=== PATIENT | female | born 1970 | race Caucasian/White ===

== ENCOUNTER 2018-05-17 15:25 | Inpatient (IN) ==
[2018-05-17 16:11] LABS: Basophils # 0.1 10*3/uL (0.0-0.2); Basophils % 0.7 % (0.0-0.8); Eosinophils # 0.2 10*3/uL (0.0-0.87); Eosinophils % 1.4 % (0.00-10.9); Hematocrit 49.2 VOL% (35.7-47.0); Hemoglobin 16.5 GM/DL (12.0-16.0); Immature Granulocytes Absolute 0.17 #; Lymphocytes % 12.1 % (21.3-54.2); Mean Corpuscular HGB Conc 33.5 GM/DL (32-36); Mean Corpuscular Hemoglobin 28 PG (27-34); Mean Corpuscular Volume 82.8 FL (87-102); Mean Platelet Volume 9.7 FL (9.6-12.0); Monocytes % 5.9 % (1.7-12.7); Neutrophils # 12.8 10*3/uL (1.4-7.4); Neutrophils % 78.9 % (38.7-73.9); Platelet Count 391 T/CUMM (130-400); Red Blood Count 5.94 MC/CUMM (3.8-5.5); Red Cell Distribution Width 12.9 % (9.3-17.3); White Blood Count 16.2 T/CUMM (4-12)
[2018-05-17] MEDS ORDERED: SODIUM CHLORIDE 0.9% 1,000 ML IV STA (16:15)
[2018-05-17] MEDS ORDERED: ONDANSETRON 4 MG/2 ML VIAL IV STA (16:15)
[2018-05-17 16:26] LABS: INR 0.9; PT Patient Result 10.1 SECS; Partial Thromboplastin Time 23.9 SECS (0-40)
[2018-05-17 16:27] LABS: Albumin 3.9 G/DL (3.4-5.0); Bilirubin,Total 0.5 MG/DL (0.2-1.0); Calcium 9.5 MG/DL (8.5-10.1); Osmolality,Calculated 285.5 MOS/KG (273-304); Potassium 3.7 MMOL/L (3.5-5.1); Total Protein 7.9 G/DL (6.4-8.3)
[2018-05-17] MEDS ORDERED: INSULIN REGULAR 100 UNIT/ML SUBCUT STA (16:38)
[2018-05-17 16:53] LABS: Lactic Acid 2.6 MMOL/L (0.4-2.0)
[2018-05-17] MEDS ORDERED: DEXTROSE 50% 25 GM/50 ML VIAL IV PRN ×2 (17:05→18:56)
[2018-05-17] MEDS ORDERED: GLUCAGON 1 MG VIAL IM PRN ×2 (17:05→18:56)
[2018-05-17 17:48] LABS: Risk Ratio 8.07; VLDL CHOLESTEROL 99.4 MG/DL
[2018-05-17 17:54] LABS: Troponin I < 0.015 NG/ML (0.00-0.045)
[2018-05-17 18:03] LABS: Apearance,Urine CLEAR (Clear); Bilirubin,Urine Negative (Negative); Blood, Urine Negative (Negative); Glucose,Urine (UA) >=500 mg/dL (Negative); Ketones,Urine 5 mg/dL (Negative); Nitrite,Urine Negative (Negative); Protein,Urine Negative; RBC,Urine 1 /HPF (0-4); Squamous Epithelial Cell,Urine Occasional /HPF (0-10); Urine Color Yellow (Yellow); Urine Specific Gravity 1.024 (1.001-1.035); Urine Urobilinogen < 2.0 EU/DL (0.2-1.0); WBC,Urine 2 /HPF (0-6)
[2018-05-17 18:10] LABS: Barbiturates Screen,Urine Negative (Negative); Benzodiazepines Screen,Urine Positive (Negative); Cannabinoid Screen,Urine Positive (Negative); Opiate Screen,Urine Negative (Negative); Phencyclidine Screen,Urine Negative (Negative)
[2018-05-17] MEDS ORDERED: INFLUENZA VIRUS VACCINE 0.5 ML SYRINGE IM ONE (19:06)
[2018-05-17] MEDS: ENOXAPARIN 40 MG/0.4 ML SYRINGE SUBCUT SCH (21:44)
[2018-05-17] MEDS: INSULIN REGULAR 100 UNIT/ML SUBCUT SCH (21:44)
[2018-05-18] MEDS: ACETAMINOPHEN 325 MG TABLET PO PRN ×2 (04:03→08:13)
[2018-05-18 06:55] LABS: Basophils # 0.1 10*3/uL (0.0-0.2); Basophils % 1.1 % (0.0-0.8); Eosinophils # 0.3 10*3/uL (0.0-0.87); Eosinophils % 2.4 % (0.00-10.9); Hematocrit 49.2 VOL% (35.7-47.0); Hemoglobin 16.7 GM/DL (12.0-16.0); Immature Granulocytes % 0.8 %; Lymphocytes # 2.4 10*3/uL (1.4-4.0); Lymphocytes % 19.8 % (21.3-54.2); Mean Corpuscular HGB Conc 33.9 GM/DL (32-36); Mean Corpuscular Hemoglobin 28 PG (27-34); Mean Corpuscular Volume 83.2 FL (87-102); Mean Platelet Volume 9.9 FL (9.6-12.0); Monocytes # 1.1 10*3/uL (0.11-0.8); Monocytes % 8.8 % (1.7-12.7); Neutrophils % 67.1 % (38.7-73.9); Platelet Count 291 T/CUMM (130-400); Red Blood Count 5.91 MC/CUMM (3.8-5.5); Red Cell Distribution Width 12.7 % (9.3-17.3); White Blood Count 11.9 T/CUMM (4-12)
[2018-05-18 07:20] LABS: Potassium 3.8 MMOL/L (3.5-5.1)
[2018-05-18] MEDS: INSULIN REGULAR 100 UNIT/ML SUBCUT SCH ×4 (08:10→20:57)
[2018-05-18] MEDS: ASPIRIN 325 MG TABLET PO SCH (08:11)
[2018-05-18] MEDS: FENOFIBRATE 145 MG TABLET PO SCH (15:11)
[2018-05-18] MEDS ORDERED: CALCIUM CARBONATE CHEW 500 MG TABLET PO PRN (16:52)
[2018-05-18] MEDS: GLIMEPIRIDE 4 MG TABLET PO SCH (18:32)
[2018-05-18] MEDS: ENOXAPARIN 40 MG/0.4 ML SYRINGE SUBCUT SCH (20:58)
[2018-05-18] MEDS: FAMOTIDINE 20 MG TABLET PO SCH (20:58)
[2018-05-18] MEDS: ROSUVASTATIN 20 MG TABLET PO SCH (20:58)
[2018-05-18] MEDS: IBUPROFEN 800 MG TABLET PO PRN (20:58)
[2018-05-19 05:08] LABS: Osmolality,Calculated 280.7 MOS/KG (273-304); Potassium 3.2 MMOL/L (3.5-5.1)
[2018-05-19 05:14] LABS: Basophils # 0.1 10*3/uL (0.0-0.2); Basophils % 1.2 % (0.0-0.8); Eosinophils # 0.3 10*3/uL (0.0-0.87); Eosinophils % 2.8 % (0.00-10.9); Hematocrit 47.8 VOL% (35.7-47.0); Immature Granulocytes % 0.7 %; Immature Granulocytes Absolute 0.07 #; Lymphocytes # 2.7 10*3/uL (1.4-4.0); Lymphocytes % 25.7 % (21.3-54.2); Mean Corpuscular HGB Conc 33.5 GM/DL (32-36); Mean Corpuscular Hemoglobin 28 PG (27-34); Mean Corpuscular Volume 82.7 FL (87-102); Mean Platelet Volume 9.6 FL (9.6-12.0); Monocytes # 0.9 10*3/uL (0.11-0.8); Monocytes % 8.9 % (1.7-12.7); Neutrophils # 6.3 10*3/uL (1.4-7.4); Neutrophils % 60.7 % (38.7-73.9); Platelet Count 346 T/CUMM (130-400); Red Blood Count 5.78 MC/CUMM (3.8-5.5); Red Cell Distribution Width 12.7 % (9.3-17.3); White Blood Count 10.3 T/CUMM (4-12)
[2018-05-19] MEDS: IBUPROFEN 800 MG TABLET PO PRN (05:37)
[2018-05-19] MEDS: FAMOTIDINE 20 MG TABLET PO SCH ×2 (08:07→21:44)
[2018-05-19] MEDS: FENOFIBRATE 145 MG TABLET PO SCH (08:07)
[2018-05-19] MEDS: INSULIN REGULAR 100 UNIT/ML SUBCUT SCH ×4 (08:07→21:45)
[2018-05-19] MEDS: ASPIRIN 325 MG TABLET PO SCH (08:07)
[2018-05-19] MEDS: LEVOTHYROXINE 75 MCG TABLET PO SCH (08:07)
[2018-05-19] MEDS: GLIMEPIRIDE 4 MG TABLET PO SCH ×2 (08:07→16:22)
[2018-05-19] MEDS ORDERED: POTASSIUM CHLORIDE 20 MEQ TABLET PO PRN (09:05)
[2018-05-19] MEDS: NICOTINE 21 MG/24 HR PATCH TRANSDERM SCH (09:06)
[2018-05-19] MEDS ORDERED: POTASSIUM CHLORIDE 20 MEQ TABLET PO ONE (13:52)
[2018-05-19] MEDS ORDERED: LISINOPRIL/HCTZ 10-12.5 MG TABLET PO SCH (14:00)
[2018-05-19] MEDS: POTASSIUM CHLORIDE 10 MEQ TABLET PO SCH (14:09)
[2018-05-19] MEDS: ROSUVASTATIN 20 MG TABLET PO SCH (21:44)
[2018-05-19] MEDS: ENOXAPARIN 40 MG/0.4 ML SYRINGE SUBCUT SCH (21:44)
[2018-05-19] MEDS: amLODIPine 5 MG TABLET PO SCH (21:45)
[2018-05-19] MEDS: INSULIN GLARGINE 100 UNIT/ML SUBCUT SCH (21:45)
[2018-05-20] MEDS: IBUPROFEN 800 MG TABLET PO PRN (04:21)
[2018-05-20 05:24] LABS: Basophils # 0.1 10*3/uL (0.0-0.2); Basophils % 1.3 % (0.0-0.8); Eosinophils # 0.3 10*3/uL (0.0-0.87); Hematocrit 46.8 VOL% (35.7-47.0); Hemoglobin 15.7 GM/DL (12.0-16.0); Immature Granulocytes % 1.1 %; Lymphocytes # 2.4 10*3/uL (1.4-4.0); Mean Corpuscular HGB Conc 33.5 GM/DL (32-36); Mean Corpuscular Hemoglobin 28 PG (27-34); Mean Corpuscular Volume 82.5 FL (87-102); Mean Platelet Volume 9.7 FL (9.6-12.0); Monocytes # 0.9 10*3/uL (0.11-0.8); Monocytes % 9.9 % (1.7-12.7); Neutrophils # 5.5 10*3/uL (1.4-7.4); Neutrophils % 58.7 % (38.7-73.9); Platelet Count 321 T/CUMM (130-400); Red Blood Count 5.67 MC/CUMM (3.8-5.5); Red Cell Distribution Width 12.8 % (9.3-17.3); White Blood Count 9.3 T/CUMM (4-12)
[2018-05-20 05:59] LABS: Osmolality,Calculated 285.7 MOS/KG (273-304); Potassium 3.5 MMOL/L (3.5-5.1)
[2018-05-20 06:00] LABS: Calcium 8.8 MG/DL (8.5-10.1); Osmolality,Calculated 285.7 MOS/KG (273-304); Potassium 3.5 MMOL/L (3.5-5.1)
[2018-05-20] MEDS: LEVOTHYROXINE 75 MCG TABLET PO SCH (06:43)
[2018-05-20] MEDS: NICOTINE 21 MG/24 HR PATCH TRANSDERM SCH (08:09)
[2018-05-20] MEDS: INSULIN REGULAR 100 UNIT/ML SUBCUT SCH ×4 (08:09→21:27)
[2018-05-20] MEDS: FAMOTIDINE 20 MG TABLET PO SCH ×2 (08:11→21:27)
[2018-05-20] MEDS: FENOFIBRATE 145 MG TABLET PO SCH (08:11)
[2018-05-20] MEDS: GLIMEPIRIDE 4 MG TABLET PO SCH ×2 (08:11→16:39)
[2018-05-20] MEDS: POTASSIUM CHLORIDE 10 MEQ TABLET PO SCH (08:11)
[2018-05-20] MEDS: amLODIPine 5 MG TABLET PO SCH ×2 (08:11→21:27)
[2018-05-20] MEDS: ASPIRIN 325 MG TABLET PO SCH (08:11)
[2018-05-20] MEDS: ROSUVASTATIN 20 MG TABLET PO SCH (21:27)
[2018-05-20] MEDS: INSULIN GLARGINE 100 UNIT/ML SUBCUT SCH (21:27)
[2018-05-20] MEDS: ENOXAPARIN 40 MG/0.4 ML SYRINGE SUBCUT SCH (21:27)
[2018-05-21] MEDS: IBUPROFEN 800 MG TABLET PO PRN ×2 (05:19→22:49)
[2018-05-21] MEDS: LEVOTHYROXINE 75 MCG TABLET PO SCH (06:32)
[2018-05-21] MEDS: NICOTINE 21 MG/24 HR PATCH TRANSDERM SCH (08:10)
[2018-05-21] MEDS: INSULIN REGULAR 100 UNIT/ML SUBCUT SCH ×4 (08:10→23:05)
[2018-05-21] MEDS: FAMOTIDINE 20 MG TABLET PO SCH ×2 (08:10→22:48)
[2018-05-21] MEDS: GLIMEPIRIDE 4 MG TABLET PO SCH ×2 (08:10→16:16)
[2018-05-21] MEDS: amLODIPine 5 MG TABLET PO SCH ×2 (08:10→22:48)
[2018-05-21] MEDS: ASPIRIN 325 MG TABLET PO SCH (08:10)
[2018-05-21] MEDS: POTASSIUM CHLORIDE 10 MEQ TABLET PO SCH (08:10)
[2018-05-21] MEDS: FENOFIBRATE 145 MG TABLET PO SCH (08:10)
[2018-05-21] MEDS ORDERED: cefTRIAXone 1,000 MG in SYRINGE 1 EACH IV SCH (11:30)
[2018-05-21] MEDS: ENOXAPARIN 40 MG/0.4 ML SYRINGE SUBCUT SCH (22:48)
[2018-05-21] MEDS: ROSUVASTATIN 20 MG TABLET PO SCH (22:48)
[2018-05-21] MEDS: AMOXICILLIN/CLAV 875 MG TABLET PO SCH (22:49)
[2018-05-21] MEDS: INSULIN GLARGINE 100 UNIT/ML SUBCUT SCH (22:50)
[2018-05-22] MEDS: LEVOTHYROXINE 75 MCG TABLET PO SCH (06:32)
[2018-05-22] MEDS: FENOFIBRATE 145 MG TABLET PO SCH (09:16)
[2018-05-22] MEDS: ASPIRIN 325 MG TABLET PO SCH (09:16)
[2018-05-22] MEDS: POTASSIUM CHLORIDE 10 MEQ TABLET PO SCH (09:16)
[2018-05-22] MEDS: amLODIPine 5 MG TABLET PO SCH ×2 (09:16→21:48)
[2018-05-22] MEDS: AMOXICILLIN/CLAV 875 MG TABLET PO SCH ×2 (09:17→21:48)
[2018-05-22] MEDS: NICOTINE 21 MG/24 HR PATCH TRANSDERM SCH (09:17)
[2018-05-22] MEDS: GLIMEPIRIDE 4 MG TABLET PO SCH ×2 (09:17→17:22)
[2018-05-22] MEDS: INSULIN REGULAR 100 UNIT/ML SUBCUT SCH ×4 (09:17→21:47)
[2018-05-22] MEDS: FAMOTIDINE 20 MG TABLET PO SCH ×2 (09:18→21:48)
[2018-05-22] MEDS: IBUPROFEN 800 MG TABLET PO PRN ×2 (12:02→21:46)
[2018-05-22] MEDS: ACETAMINOPHEN 325 MG TABLET PO PRN (17:24)
[2018-05-22] MEDS ORDERED: INSULIN GLARGINE 100 UNIT/ML SUBCUT SCH (21:00)
[2018-05-22] MEDS ORDERED: ONDANSETRON 4 MG/2 ML VIAL IV PRN (21:28)
[2018-05-22] MEDS: ENOXAPARIN 40 MG/0.4 ML SYRINGE SUBCUT SCH (21:48)
[2018-05-22] MEDS: ROSUVASTATIN 20 MG TABLET PO SCH (21:48)
[2018-05-22] MEDS ORDERED: PROMETHAZINE 25 MG TABLET PO ONE (22:18)
[2018-05-23] MEDS: ACETAMINOPHEN 325 MG TABLET PO PRN (04:06)
[2018-05-23] MEDS: LEVOTHYROXINE 75 MCG TABLET PO SCH (06:12)
[2018-05-23] MEDS: GLIMEPIRIDE 4 MG TABLET PO SCH (08:28)
[2018-05-23] MEDS: POTASSIUM CHLORIDE 10 MEQ TABLET PO SCH (08:28)
[2018-05-23] MEDS: AMOXICILLIN/CLAV 875 MG TABLET PO SCH (08:28)
[2018-05-23] MEDS: ASPIRIN 325 MG TABLET PO SCH (08:28)
[2018-05-23] MEDS: FENOFIBRATE 145 MG TABLET PO SCH (08:28)
[2018-05-23] MEDS: FAMOTIDINE 20 MG TABLET PO SCH (08:28)
[2018-05-23] MEDS: amLODIPine 5 MG TABLET PO SCH (08:28)
[2018-05-23] MEDS: NICOTINE 21 MG/24 HR PATCH TRANSDERM SCH (08:28)
[2018-05-23] MEDS: INSULIN REGULAR 100 UNIT/ML SUBCUT SCH ×2 (08:29→12:11)
[2018-05-23 14:50] VITALS: BP 116/72
== END 2018-05-23 14:28 | disposition home or self-care (01) | DRG 65 ==
LOC: EDBD → EDUNIT# → N.ED 15:25 → N.EDINP 15:25 → N.5E 17:36
PROVIDERS: ADMIT Internal Medicine; ATTEND Internal Medicine